=== PATIENT | male | born 1945 | race Caucasian/White ===

== ENCOUNTER → 2017-02-01 | Outpatient (CLI) | payer OTHER ==
--- NOTE | ~2017-02-01 | CR63 ---
[facility] A Service of [facility] & [facility] RADIOLOGY TEXT RESULTS PATIENT: RIMA PEDRAZA LOCATION: [facility] : 41 UNIT #: [id number] AGE: [address]: FOX FOOTE APRN SEX: M ORDER DR: [id number] [facility] [address] [place], [place] [address] [id number] O MR#: [id number] Acc #: [id number] NAME: RIMA PEDRAZA : 1945 SEX: M STUDY DATE/TIME: 02/01/2017 16:22 UNIT: [facility] ROOM: STUDY DESCRIPTION: CR Chest 2 View Ordering Physician: Dillon Foote M.D. Primary Care Physician: Pravin Bingham M.D. MEDICAL IMAGING REPORT This report is preliminary unless electronic signature is present EXAM 2 views chest 02/01/2017 HISTORY Pneumonia. 1 week duration. Follow up pneumonia. TECHNIQUE PA and lateral radiographs of the chest are presented. COMPARISON STUDIES 12/18/2014. FINDINGS Clarification of the patient's medical course in the interval from 12/18/2014 is requested. The appearance of the chest is markedly changed from the prior study and is markedly abnormal. There is complete opacification of the right hemithorax. This appears homogeneous. There appear to be relatively abrupt cutoffs of the right bronchial tree centrally. There is cardiomediastinal shift from left to right. This could be a reflection of prior right pneumonectomy with subsequent filling of the right hemithorax with fluid. There is a right posterior sixth healed rib fracture which could be a reflection of prior operative intervention/thoracotomy. Alternatively, an obstructing process, benign or malignant, could be causing complete collapse and/or dense post-obstructive pneumonia in the right lung. If the patient has not undergone prior right pneumonectomy, then further evaluation of the thorax with CT examination and/or bronchoscopy would be strongly recommended. The left lung is somewhat hyperinflated, similar to prior examination, likely reflecting underlying chronic airway disease as well as some degree of compensatory hyperinflation. No acute left lung pulmonary disease is seen. No left-sided pulmonary nodule or pleural effusion or pneumothorax. Bowel gas pattern upper abdomen unremarkable. [facility] A Service of [facility] & [facility] / [facility] RADIOLOGY TEXT RESULTS PATIENT: RIMA PEDRAZA LOCATION: [facility] : 41 UNIT #: [id number] AGE: [address]: FOX FOOTE APRN SEX: M ORDER DR: Dictated by... Art Kwok M.D. THIS IS AN ELECTRONICALLY VERIFIED REPORT Art Kwok M.D. at 02/03/2017 6:26 PM Abdiel TD: 02/02/2017 20:48 JOB #: [id number] MEDICAL IMAGING REPORT Page 1 of 1 COPY
== END | disposition home or self-care (01) ==
LOC: CRAD 15:43
DX: J18.9 Pneumonia, unspecified organism (principal)
CPT/HCPCS: 71020